=== PATIENT | female | born 1990 | race Two or more races ===

== ENCOUNTER 2020-10-03 12:36 | Outpatient (REF) | payer OTHER, SELFPAY ==
--- NOTE | 2020-10-03 12:51 | XR_ITS ---
EXAMINATION: XR LUMBOSACRAL SPINE WITH OBLIQUES CLINICAL INFORMATION: Low back pain COMPARISON: None TECHNIQUE: AP and lateral views lumbar spine. Single lateral view of the lumbosacral junction. FINDINGS: The vertebral bodies and posterior elements are normal. The disc spaces are preserved and the vertebral alignment is normal. The paraspinal soft tissues are normal. XR/XR lumbar spine 4V min IMPRESSION: Unremarkable examination.
== END 2020-10-03 12:37 | disposition home or self-care (01) ==
LOC: HO.XRAY 12:36
PROVIDERS: PCP Internal Medicine; Visit Provider Internal Medicine
DX: M54.5 Low back pain (principal)
CPT/HCPCS: 72110

== ENCOUNTER 2020-11-12 13:14 | Outpatient (REF) | payer OTHER, SELFPAY ==
--- NOTE | ~2020-11-12 | US_ITS ---
EXAMINATION: US DIAGNOSTIC ULTRASOUND BREAST, LEFT CLINICAL INFORMATION: 29-year-old with superficial dermal nodule at surface left breast areola upper outer aspect, decreased since warm compress and spontaneous drainage. Persistent breast pain. Stopped breast-feeding approximately 3 months ago. No known family history breast cancer. COMPARISON: None. TECHNIQUE: Ultrasound left breast is targeted to the area of clinical concern upper outer areolar. Retroareolar and periareolar region is also included in the [id number]. Grayscale imaging and color Doppler are performed without and with harmonics. FINDINGS: There is no cystic or solid mass. No abscess. No focal duct ectasia. No skin thickening or edema tracking in soft tissue planes. Small deep dermal nodule 2 x 3 mm near area of concern corresponds to a small vascular structure on color Doppler. There is no hyperemia. Results are discussed with the patient at time of visit. US/US breast LT limited IMPRESSION: Unremarkable left breast ultrasound. No abscess, focal duct ectasia, or edema tracking in soft tissue planes. ASSESSMENT: BI-RADS 2: Benign RECOMMENDATION: 1. Patient should be managed based on the clinical impression. 2. Otherwise, routine annual screening mammography, beginning age 40, or earlier as clinical risk factors warrant. This patient's information was entered into a reminder system with a target due date for their next mammogram.
== END 2020-11-12 13:15 | disposition home or self-care (01) ==
LOC: HO.MAMMO 13:14
PROVIDERS: PCP Internal Medicine; Visit Provider Registered Nurse Community Health
DX: N63.25 Unspecified lump in the left breast, overlapping quadrants (principal); N64.4 Mastodynia
CPT/HCPCS: 76642

== ENCOUNTER 2021-03-28 10:44 | Outpatient (REF) | payer OTHER, SELFPAY ==
--- NOTE | ~2021-03-28 | US_ITS ---
EXAMINATION: US DIAGNOSTIC ULTRASOUND BREAST, LEFT CLINICAL INFORMATION: Retroareolar palpable abnormality. COMPARISON: Mammography of same day and ultrasound of November 12, 2020. TECHNIQUE: Ultrasound of the breast is performed with real-time ross scale imaging and color Doppler. FINDINGS: Targeted left breast ultrasound to region of palpable abnormality, 2 o'clock position, retroareolar location demonstrates an epidermoid lesion which is hypoechoic and circumscribed measuring approximately 7 x 3 x 7 mm in size. Patient states that this is a different lesion than was imaged previously. There is a small amount of distal sound enhancement and no distal sound shadowing. No definite pore to the skin is appreciated. There are adjacent vessels. No definite extension of the hypoechoic mass is seen within the breast parenchyma. This may represent an epidermal inclusion cyst or possible angiokeratoma. Results are discussed with the patient at time of visit. US/US breast LT limited IMPRESSION: Palpable abnormality corresponds with epidermal lesion with vascularity which may represent a epidermal inclusion cyst/sebaceous cyst or possible angiokeratoma. ASSESSMENT: BI-RADS 2: Benign. RECOMMENDATION: Patient should be managed based on the clinical impression. Decision to proceed with surgery should be based on clinical grounds and degree of clinical concern. Otherwise screening mammography at age [age] years old.
--- NOTE | ~2021-03-28 | MM_ITS ---
EXAMINATION: MM DIAGNOSTIC DIGITAL BREAST TOMOSYNTHESIS, BILATERAL US TARGETED LEFT BREAST ULTRASOUND CLINICAL INFORMATION: Left breast lump 2 o'clock position. Tender to touch. The lifetime risk of breast cancer based on the Tyrer-Cuzick Model is 8.1%. COMPARISON: Mammography: No mammography. Ultrasound study of 11/12/2020. TECHNIQUE: Digital breast tomosynthesis is performed in both the craniocaudal and mediolateral oblique views along with computer-aided detection (CAD). Synthesized 2D images are generated from the tomosynthesis. Targeted left breast ultrasound. FINDINGS: The breasts are heterogeneously dense, which may obscure small masses (ACR BI-RADS breast composition Category c). There are no significant masses, abnormal calcifications, or other abnormalities. Targeted left breast ultrasound to region of palpable abnormality, 2 o'clock position, retroareolar location demonstrates an epidermoid lesion which is hypoechoic and circumscribed measuring approximately 7 x 3 x 7 mm in size. Patient states that this is a different lesion than was imaged previously. There is a small amount of distal sound enhancement and no distal sound shadowing. No definite pore to the skin is appreciated. There are adjacent vessels. No definite extension of the hypoechoic mass is seen within the breast parenchyma. This may represent an epidermal inclusion cyst or possible angiokeratoma. Results are discussed with the patient at time of visit. MM/MM tomosynthesis diagnostic BI IMPRESSION: Palpable abnormality corresponds with epidermal lesion with vascularity which may represent a epidermal inclusion cyst/sebaceous cyst or possible angiokeratoma. ASSESSMENT: BI-RADS 2: Benign. RECOMMENDATION: 1. Patient should be managed based on the clinical impression. Decision to proceed with surgery should be based on clinical grounds and degree of clinical concern. Routine annual screening mammography at 40 years of age.
== END 2021-03-28 10:45 | disposition home or self-care (01) ==
LOC: HO.MAMMO 10:44
PROVIDERS: Visit Provider Emergency Medicine
DX: N63.21 Unspecified lump in the left breast, upper outer quadrant (principal)
CPT/HCPCS: 76642; 77062; 77066

== ENCOUNTER → 2021-04-30 10:38 | Outpatient (BNVA) | payer MEDICAID, SELFPAY | PROVIDERS: PCP Internal Medicine; Visit Provider Surgery | DX: N60.82 Other benign mammary dysplasias of left breast (principal); N64.4 Mastodynia | CPT/HCPCS: 99202 ==

== ENCOUNTER 2021-12-11 14:48 | Outpatient (REF) | payer MEDICAID, SELFPAY ==
--- NOTE | ~2021-12-11 | US_ITS ---
EXAMINATION: US PELVIS CLINICAL INFORMATION: Excessive and frequent menses. COMPARISON: None. TECHNIQUE: Ultrasound of the pelvis is performed using both transabdominal and transvaginal transducers along with Doppler. Transvaginal imaging is performed due to inadequate visualization transabdominally. FINDINGS: Uterus: The uterus is retroverted, retroflexed and measures 8.4 cm in length, 3.8 cm and AP and 5.3 cm in transverse dimension. There is an IUD in correct position within the endometrial canal. The double wall endometrial thickness is 0.4 cm. The uterus is smooth in contour and has normal myometrial echogenicity. No visible fibroid. There is minimal fluid within the cervical canal Adnexa: Both ovaries are visualized. There is normal color flow to the adnexa. There is no ovarian torsion. There is no pelvic ascites or fluid collection. Right ovary measures 3.8 x 1.9 x 2.0 cm and volume 7.6 cm. There are small follicular cysts seen. Left ovary measures 2.6 x 1.3 x 2.0 cm and volume 3.5 mL. There are small follicular cysts seen. There is small amount of free fluid in the cul-de-sac. US/US pelvic and transvaginal IMPRESSION: Unremarkable retroverted uterus. IUD is in correct position within the endometrial canal. Minimal fluid within the cervical canal. Small ovarian follicles otherwise unremarkable ovaries. Small amount of free fluid in the cul-de-sac.
== END 2021-12-11 14:49 | disposition home or self-care (01) ==
LOC: HO.US 14:48
PROVIDERS: PCP Internal Medicine; Visit Provider Advanced Practice Midwife
DX: Z30.431 Encounter for routine checking of intrauterine contraceptive device (principal); N92.0 Excessive and frequent menstruation with regular cycle
CPT/HCPCS: 76830; 76856

== ENCOUNTER 2023-08-10 14:34 | Outpatient (REF) | payer MEDICAID, SELFPAY ==
--- NOTE | ~2023-08-10 | XR_ITS ---
EXAMINATION: XR CHEST CLINICAL INFORMATION: Productive cough Patient states, shortness of breath for 7 days, chest pain for 5 days COMPARISON: None available. TECHNIQUE: 2 views of the chest were obtained. 1441. FINDINGS: No significant abnormality is noted involving the heart, lungs, mediastinum, bony thorax or soft tissues. XR/XR chest 2V IMPRESSION: Unremarkable examination.
== END 2023-08-10 14:35 | disposition home or self-care (01) ==
LOC: HO.HHCX 14:34
PROVIDERS: Visit Provider Emergency Medicine
DX: R05.1 Acute cough (principal)
CPT/HCPCS: 71046

== ENCOUNTER 2023-10-28 13:26 | Outpatient (AMB) | payer MEDICAID, SELFPAY ==
[2023-10-28 13:28] VITALS: BP 117/82; PULSE 100; O2SAT 99; BMI 35.1
--- NOTE | 2023-10-28 13:28 | A.OFFVIS_ITS ---
Intake Vital Signs 10/28/23 13:28 Height 5 ft Weight 179 lb 10.828 oz BMI 35.1 BP 117/82 Blood Pressure Location Lt brachial Position Sitting Pulse 100 Pulse Source Doppler Pulse Oximetry (%) 99 Oxygen Delivery Method Room Air Intake Visit Reasons: Asthma Allergies doxycycline Adverse Reaction (Verified 10/28/23 13:31) Dizziness, warm sensation, nausea HPI Asthma HPI Details 32-year-old lady, nonsmoker, with underl hossein history of asthma since childhood and family history of asthma in her mother referred for management of her asthma. Patient states that she has been having difficulties controlling her since July of 2023 with multiple exacerbations requiring hospital admission, but no intubation. She denies having recent pulmonary function testing. She does complain of multiple environmental allergies. She is employed with no exposure to industrial dusts. Patient is also complaining of orthopnea lower extremity edema, and unrestful sleep with daytime somnolence and snoring. Patient states for the last few weeks she has been having cough productive of yellow sputum in the morning. [facility] Social History (Updated 10/28/23 @ 13:34 by Verito Ronquillo [facility]) Patient Tobacco Use Status: Never used Tobacco Tobacco use type: Cigarette Female Reproductive History Menstrual Age of Menarche: 12 Review of Systems Const Reports daytime sleepiness, Denies excessive sweating, Reports fatigue, Denies fever(s), Denies lethargy, Denies malaise, Denies night sweats, Reports snoring and Denies weight loss Eyes Denies blurry vision and Denies itchy eyes ENT Denies nasal congestion, Denies post nasal drip, Denies sinus pain, Denies sinus pressure and Denies other ( Thrush) Card Denies chest pain, Reports pedal edema, Denies dyspnea, Reports dyspnea on exertion, Reports orthopnea and Denies paroxysmal nocturnal dyspnea Resp Reports cough, Denies hemoptysis, Reports excessive phlegm production, Denies dyspnea, Reports dyspnea on exertion and Reports snoring GI Denies abdominal pain and Denies heartburn Musc Denies myalgias, Denies arthralgias and Denies joint swelling Skin/Breast Denies rash Neuro Denies memory loss and Denies seizure-like activity Psych Denies abnormal sleep pattern, Denies anxiety and Denies memory loss Endo Denies excessive sweating, Reports fatigue and Denies heat intolerance Logan/Lymph Denies easy bruising Aller/Immun Denies itchy eyes and Denies seasonal rhinorrhea Physical Exam Vital Signs: Last Vital Signs Pulse 100 10/28/23 13:28 BP 117/82 10/28/23 13:28 Pulse Ox 99 10/28/23 13:28 Oxygen Delivery Method Room Air 10/28/23 13:28 BMI result Body Mass Index 35.1 Const General: no acute distress and alert Nutritional Appearance: obese Orientation/consciousness: Other orientation findings ( oriented) HEENT Head: Yes atraumatic Eyes General: appearance normal, both eyes and all related structures Sclerae: sclerae normal EOM: EOMs intact bilaterally Neck Neck: Yes supple Lymphatic: no lymphadenopathy noted Resp Effort & Inspection: normal respiratory effort and no use of accessory muscles Auscultation: clear to auscultation bilaterally Cardio Rate: regular rate Rhythm: regular rhythm Heart sounds: no gallops, no murmurs and no rubs Skin General skin exam: other ( warm) Extrem General: No clubbing, No cyanosis and No edema Assessment & Plan Assessment & Plan (1) Asthma: Code(s): J45.909 - Unspecified asthma, uncomplicated Plan: At least moderate persistent. Suboptimally controlled on high-dose Advair and albuterol MDI. Will add Incruse. Will obtain full PFT. Will treat bronchitic symptoms with a course of azithromycin. (2) Environmental allergies: Code(s): Z91.09 - Other allergy status, other than to drugs and biological substances Plan: Will obtain RAST, IgE level, and CBC for further evaluation. (3) Orthopnea: Code(s): R06.01 - Orthopnea Plan: Will obtain 2D echocardiogram for further evaluation. (4) CODY (obstructive sleep apnea): Code(s): G47.33 - Obstructive sleep apnea (adult) (pediatric) Plan: Hammond Sleepiness Scale score of 15. Will obtain home sleep study. Orders: Orders Complete Blood Count Auto Diff Today Z91.09 - Other allergy status, other than to drugs and biological substances PFT pulmonary function test Today J45.909 - Unspecified asthma, uncomplicated CA echo transthoracic complete Today R06.01 - Orthopnea RT home sleep study Today G47.33 - Obstructive sleep apnea (adult) (pediatric) Resp Allergy Profile Region I Today Z91.09 - Other allergy status, other than to drugs and biological substances Medications: New umeclidinium 62.5 mcg/actuation (Incruse Ellipta) 1 inh inhalation DAILY 30 days 1 ea 6RF G47.33 - Obstructive sleep apnea (adult) (pediatric) azithromycin For 250 mg dose pack: take 500 mg today (day 1), then 250 mg for 4 days (days 2-5) PO 6 tabs 0RF G47.33 - Obstructive sleep apnea (adult) (pediatric) Coding Level of Care Code New Pt Level 5 (10529) Diagnoses Asthma J45.909 Environmental allergies Z91.09 Orthopnea R06.01 CODY (obstructive sleep apnea) G47.33
== END 2023-10-28 13:55 | disposition home or self-care (01) ==
PROVIDERS: PCP Internal Medicine; Referring Provider General Practice; Visit Provider Internal Medicine Pulmonary Disease
DX: J45.909 Unspecified asthma, uncomplicated (principal); Z91.09 Other allergy status, other than to drugs and biological substances; R06.01 Orthopnea; G47.33 Obstructive sleep apnea (adult) (pediatric)
CPT/HCPCS: 99204

== ENCOUNTER 2023-10-28 13:26 | Outpatient (REF) | payer MEDICAID, SELFPAY ==
[2023-10-28 14:07] LABS: MANUAL DIFF FLAG NO
[2023-10-28 14:37] LABS: Basophils Percent Auto 0.6 % (0-2); Eosinophils Absolute Auto 0.2 X10*3/uL (0.0-0.4); Eosinophils Percent Auto 2.1 % (0-4); Hematocrit 40.2 % (37.0-47.0); Hemoglobin 13.8 g/dl (12.0-16.0); Imm Gran Abs Auto 0.02 X10*3/uL (0.00-0.03); Imm Gran Pct Auto 0.3 % (0.0-0.4); Lymphocytes Absolute Auto 2.3 X10*3/uL (1.2-4.9); Lymphocytes Percent Auto 32.6 % (20-40); Mean Corpuscular HGB Conc 34.3 g/dl (31.0-35.0); Mean Corpuscular Hemoglobin 29.6 pg (27.0-33.0); Mean Corpuscular Volume 86.1 fL (80.0-98.0); Mean Platelet Volume 8.6 fL (9.4-12.3); Monocytes Absolute Auto 0.8 X10*3/uL (0.1-1.2); Monocytes Percent Auto 10.9 % (2-11); Neutrophils Absolute Auto 3.8 x10*3/uL (2.0-8.3); Neutrophils Percent Auto 53.5 % (45-73); Platelet Count 315 X10*3/uL (160-400); Red Blood Count 4.67 X10*6/uL (4.20-5.50); Red Cell Distribution Width 12.5 % (11.0-16.0)
[2023-10-29 23:03] LABS: Class Alternaria alternata 0; Class Aspergillus fumigatus 0; Class Bermuda Grass 2; Class Birch 2; Class Cat Dander 3; Class Cladosporium herbarum 0; Class Cockroach 0; Class Common Ragweed 2; Class Cottonwood 0/1; Class Derm. pterony 3; Class Dermatophagoides farinae 3; Class Dog Dander 3; Class Elm 0/1; Class Maple Box Elder 3; Class Mountain Cedar 0/1; Class Mouse Urine Protein 2; Class Mugwort 0; Class Oak 2; Class Penicillium crysogenum 0; Class Rough Pigweed 0; Class Sheep Sorrel 0; Class Sycamore 0; Class Timothy Grass 3; Class Walnut Tree 2; Class White Ash 0/1; Class White Mulberry 0; D001 IgE D pteronyssinus 7.49 kU/L; D002 - IgE D farinae 6.48 kU/L; E072-IgE Mouse Urine 2.23 kU/L; G002 IgE Bermuda Grass 2.87 kU/L; G006 - IgE Timothy Grass 6.51 kU/L; I006-IgE Cockroach, German <0.10 kU/L; Immunoglobulin E 337 kU/L (<OR=114); M001 IgE Penicillium chrysogen <0.10 kU/L; M002 - IgE Cladosporium herbar <0.10 kU/L; M003 - IgE Aspergillus fumigat <0.10 kU/L; M006 - IgE Alternaria alternat <0.10 kU/L; T001 IgE Maple/Box Elder 3.68 kU/L; T006 - IgE Cedar, Mountain 0.11 kU/L; T007 - IgE Oak, White 2.01 kU/L; T008 IgE Elm, American 0.25 kU/L; T010 - IgE Walnut 2.07 kU/L; T011 - IgE Maple Leaf Sycamore <0.10 kU/L; T014 - IgE Cottonwood 0.34 kU/L; T015 - IgE Ash, White 0.22 kU/L; T070 - IgE White Mulberry <0.10 kU/L; W001 - IgE Ragweed, Short 1.86 kU/L; W006 - IgE Mugwort <0.10 kU/L; W014 IgE Pigweed, Common <0.10 kU/L; W018 IgE Sheep Sorrel <0.10 kU/L
== END 2023-10-28 13:27 | disposition home or self-care (01) ==
LOC: HO.LAB 13:26
PROVIDERS: PCP Internal Medicine; Referring Provider General Practice; Visit Provider Internal Medicine Pulmonary Disease
DX: J45.909 Unspecified asthma, uncomplicated (principal); R06.01 Orthopnea; G47.33 Obstructive sleep apnea (adult) (pediatric); Z91.09 Other allergy status, other than to drugs and biological substances
CPT/HCPCS: 36415; 82785; 85025; 86003; 99202

== ENCOUNTER 2023-11-06 09:25 | Outpatient (REF) | payer MEDICAID, SELFPAY ==
[2023-11-06 10:15] VITALS: PULSE 82; RESP 16; O2SAT 98
--- NOTE | 2023-11-06 15:52 | PFT_ITS ---
Spirometry [] Lung Volumes [] Diffusion Capacity [] Methacholine Challenge [] Flow Volume Loops [] MVV [] MIP/MEP(Max inspiratory pressure/Max expiratory pressure) [] 6 Minute Walk Test [] ABG [] Interpretation [] MTDD
== END 2023-11-06 09:26 | disposition home or self-care (01) ==
LOC: HO.RESP 09:25
PROVIDERS: PCP Internal Medicine; Visit Provider Internal Medicine Pulmonary Disease
DX: J45.909 Unspecified asthma, uncomplicated (principal)
CPT/HCPCS: 94010; 94640; 94727; 94729

== ENCOUNTER → 2023-11-06 15:52 | Outpatient (BNV) | payer MEDICAID, SELFPAY | PROVIDERS: PCP Internal Medicine; Visit Provider Internal Medicine Pulmonary Disease | DX: J45.909 Unspecified asthma, uncomplicated (principal) | CPT/HCPCS: 94060; 94727; 94729 ==

== ENCOUNTER 2023-12-04 12:44 | Outpatient (REF) | payer MEDICAID, SELFPAY ==
[2023-12-04 12:50] VITALS: BP 112/70; PULSE 87; RESP 18; TEMP 36.8; O2SAT 94; BMI 34.0
[2023-12-04] MEDS: Omalizumab 150 MG/ML SYRINGE 300 MG SUBCUT (12:58)
--- NOTE | 2023-12-04 13:03 | HO.INF ---
2nd sq injection given to patient in upper left arm
--- NOTE | 2023-12-04 14:40 | HO.INF ---
2nd sq injection given in left upper arm
--- NOTE | 2023-12-04 14:41 | HO.INF ---
second dose of sq medication given in upper right arm 1330- no adverse reactions noted. 1400- no adverse reactions noted 1430 - no adverse reactions noted 1450- no adverse reactions noted
== END 2023-12-04 12:45 | disposition home or self-care (01) ==
LOC: HO.MDS 12:44
PROVIDERS: Visit Provider Internal Medicine Pulmonary Disease
DX: J45.50 Severe persistent asthma, uncomplicated (principal)
CPT/HCPCS: 96372; J2357

== ENCOUNTER → 2023-12-15 13:29 | Outpatient (REF) | payer MEDICAID, SELFPAY ==
--- NOTE | 2023-12-15 13:32 | CA_ITS ---
Transthoracic Echocardiogram Patient (Last, First, Middle): Isabel Milligan, Gender: Female Date of : 1990 Age: 33 Procedure Date: 12/15/2023 Procedure Type: Transthoracic Echocardiogram Location: OP Height: 152. cm Weight: 77.57 kg BSA: 1.74 m2 Heart Rate: 94 bpm BP: 110 / 60 mmHg Solutions Delivery Consultant: WILLIE Referring MD: Tom Hathaway MD Symptoms: R06.01 - Orthopnea Study Quality: Fair ECG Rhythm: Sinus Conclusions: - The left ventricular systolic function is normal. The calculated ejection fraction is 67% by biplane method. - No obvious valvular pathology seen on this study. - There is no evidence of pulmonary hypertension. Findings Left Ventricle Normal left ventricular cavity size. There is normal left ventricular wall thickness. The left ventricular systolic function is normal. The calculated ejection fraction is 67% by biplane method. There is no evidence of regional wall motion abnormalities. Diastolic function is normal for age. Right Ventricle Normal right ventricular cavity size and systolic function. Atria Both atria are normal in size. Aortic Valve There is a normal trileaflet aortic valve. There is no aortic valve stenosis. There is no aortic valve regurgitation. Mitral Valve The mitral valve appears normal. There is no mitral valve regurgitation. There is no mitral valve stenosis. Pulmonic Valve The pulmonic valve is likely normal. Tricuspid Valve Normal tricuspid valve structure. There is trace tricuspid valve regurgitation. There is no evidence of pulmonary hypertension. Great Vessels The asc aorta is normal in size. Venous The inferior vena cava is normal in size and collapses greater than 50% with inspiration. Pericardium/Pleural There is no evidence of pericardial effusion. Prior Study Comparison No prior study available for comparison. Recommendations, Care & Conclusions No obvious valvular pathology seen on this study. Measurements 2D Linear Measurements IVSd: 0.96 0.6-0.9/0.6-1.0 cm LVIDd: 3.52 3.9-5.3/4.2-5.9 cm LVIDd Index: 2.02 2.4-3.2/2.2-3.1 cm/m2 LVIDs: 2.13 2.0-3.6 cm LVPWd: 0.96 0.7-1.1 cm LA Diam: 2.70 2.7-3.8/3.0-4.0 cm LAIDs Index: 1.55 1.5-2.3 cm/m2 LV Mass: 121.89 67-162/88-224 g LV Mass Index: 70.05 43-95/49-115 g/m2 LVOT Diam: 1.80 3.0+(-)1.3 cm 2D Systolic Function EF 4C: 66.80 >55% EF 2C: 65.80 >55% EF BiP: 66.70 >55% Mitral Valve MV Pk E: 0.82 MV PK A: 0.72 MV Decel Time: 155.00 E/A: 1.10 E'Lateral: 9.86 E'Medial: 9.36 E/E' Med: 8.80 E/E' Lat: 8.30 PHT: 45.00 MVA PHT: 4.89 Decel Ripley: 5.32 Aortic Valve AoV Pk Roverto: 1.40 AoV Mn Roverto: 0.98 AoV VTI: 0.24 AoV Pk Grad: 8.00 Aov Mn Grad: 4.00 RAJAN Cont.VTI: 1.80 LVOT LVOT Pk Roverto: 1.04 LVOT Mn Roverto: 0.72 LVOT VTI: 0.17 LVOT Pk Grad: 4.00 LVOT Mn Grad: 2.00 LVOT Diam: 1.80 LVOT Area: 2.54 Diastolic Function MV Pk E: 0.82 MV Pk A: 0.72 E/A: 1.10 E'Medial: 9.36 E/E' Med: 8.80 E' Laterial: 9.86 E/E' Lat: 8.30 Right Ventricle TAPSE (mm): 22.80 TVS' Roverto: 12.90 Tricuspid Valve TR Pk Roverto: 1.72 TR Pk Grad: 12.00 RA Press: 3.00 RVSP: 15.00 Great Vessels Aorta Sinus of Valsalva: 2.70 2.0-3.5 cm Ao Asc: 2.70 2.1-3.4 cm Pulmonary Valve PV Pk Roverto: 1.28 Peak PV Grad: 7.00 Updated in Other Vendor System with Status of Final Yonathan Bain MD electronically signed on 12/15/2023 4:23:20 PM with status of Final
== END ==
LOC: HO.CARD 13:29
PROVIDERS: PCP Internal Medicine; Visit Provider Internal Medicine Pulmonary Disease
DX: G47.33 Obstructive sleep apnea (adult) (pediatric) (principal); R06.01 Orthopnea; R06.09 Other forms of dyspnea
CPT/HCPCS: 93306; 95806

== ENCOUNTER → 2023-12-15 13:32 | Outpatient (BNV) | payer MEDICAID, SELFPAY | PROVIDERS: PCP Internal Medicine; Visit Provider Internal Medicine | DX: R06.01 Orthopnea (principal) | CPT/HCPCS: 93306 ==

== ENCOUNTER → 2023-12-15 14:39 | Outpatient (BNV) | payer MEDICAID, SELFPAY | PROVIDERS: PCP Internal Medicine; Visit Provider Internal Medicine | DX: R06.83 Snoring (principal) | CPT/HCPCS: 95806 ==

== ENCOUNTER 2023-12-16 11:23 | Outpatient (REF) | payer MEDICAID, SELFPAY ==
[2023-12-16 13:50] LABS: Anion Gap 15 (12-20); B Type Natriuretic Peptide < 10 pg/mL (<100); Blood Urea Nitrogen 11 mg/dL (9-16); Calcium 10.1 mg/dL (8.4-10.2); Carbon Dioxide 21 mmol/L (22-29); Chloride 107 mmol/L (96-108); Estimated Glomerular Filt Rate > 60; Glucose Random 95 mg/dL (60-115); Magnesium 2.1 mg/dL (1.6-2.6); Phosphorus 1.4 mg/dL (2.7-4.5); Potassium 3.8 mmol/L (3.3-5.1); Sodium 139 mmol/L (135-145)
== END 2023-12-16 11:24 | disposition home or self-care (01) ==
LOC: HO.HHCL 11:23
PROVIDERS: Visit Provider Internal Medicine
DX: R06.09 Other forms of dyspnea (principal); G43.919 Migraine, unspecified, intractable, without status migrainosus
CPT/HCPCS: 36415; 80048; 83735; 83880; 84100

== ENCOUNTER 2023-12-18 07:58 | Outpatient (REF) | payer MEDICAID, SELFPAY ==
[2023-12-18 08:01] VITALS: BP 131/68; PULSE 82; RESP 18; TEMP 36.6; O2SAT 97
[2023-12-18] MEDS: Omalizumab 150 MG/ML SYRINGE 300 MG SUBCUT (08:09)
== END 2023-12-18 07:59 | disposition home or self-care (01) ==
LOC: HO.MDS 07:58
PROVIDERS: Visit Provider Internal Medicine Pulmonary Disease
DX: J45.50 Severe persistent asthma, uncomplicated (principal)
CPT/HCPCS: 96372; J2357

== ENCOUNTER 2023-12-18 08:26 | Outpatient (REF) | payer MEDICAID, SELFPAY ==
[2023-12-18 12:06] LABS: Phosphorus 3.5 mg/dL (2.7-4.5); Potassium 4.1 mmol/L (3.3-5.1)
== END 2023-12-18 08:27 | disposition home or self-care (01) ==
LOC: HO.HHCL 08:26
PROVIDERS: Visit Provider Internal Medicine
DX: E83.39 Other disorders of phosphorus metabolism (principal)
CPT/HCPCS: 36415; 84100; 84132

== ENCOUNTER 2023-12-22 13:52 | Outpatient (REF) | payer MEDICAID, SELFPAY ==
[2023-12-22 16:24] LABS: MANUAL DIFF FLAG NO
[2023-12-22 16:26] LABS: Basophils Percent Auto 0.2 % (0-2); Eosinophils Absolute Auto 0.2 X10*3/uL (0.0-0.4); Eosinophils Percent Auto 1.4 % (0-4); Hematocrit 40.7 % (37.0-47.0); Hemoglobin 13.8 g/dl (12.0-16.0); Imm Gran Abs Auto 0.04 X10*3/uL (0.00-0.03); Imm Gran Pct Auto 0.3 % (0.0-0.4); Lymphocytes Absolute Auto 1.2 X10*3/uL (1.2-4.9); Lymphocytes Percent Auto 9.7 % (20-40); Mean Corpuscular HGB Conc 33.9 g/dl (31.0-35.0); Mean Corpuscular Hemoglobin 29.7 pg (27.0-33.0); Mean Corpuscular Volume 87.5 fL (80.0-98.0); Mean Platelet Volume 8.6 fL (9.4-12.3); Monocytes Percent Auto 8.2 % (2-11); Neutrophils Absolute Auto 9.6 x10*3/uL (2.0-8.3); Neutrophils Percent Auto 80.2 % (45-73); Platelet Count 295 X10*3/uL (160-400); Red Blood Count 4.65 X10*6/uL (4.20-5.50); Red Cell Distribution Width 13.1 % (11.0-16.0)
[2023-12-22 16:39] LABS: Estimated Average Glucose 108 mg/dL; Hemoglobin A1c % 5.4 % (<6.0)
[2023-12-22 17:04] LABS: Alanine Aminotransferase 30 U/L (0-31); Albumin Level 3.6 g/dL (3.5-5.0); Alkaline Phosphatase 87 U/L (39-117); Anion Gap 12 (12-20); Aspartate Amino Transferase 26 U/L (5-31); Bilirubin Total 0.5 mg/dL (0.0-1.0); Blood Urea Nitrogen 10 mg/dL (9-16); Calcium 8.9 mg/dL (8.4-10.2); Carbon Dioxide 22 mmol/L (22-29); Chloride 107 mmol/L (96-108); Estimated Glomerular Filt Rate > 60; Glucose Random 88 mg/dL (60-115); Magnesium 2.2 mg/dL (1.6-2.6); Phosphorus 2.8 mg/dL (2.7-4.5); Sodium 137 mmol/L (135-145); Total Protein 6.8 g/dL (6.5-8.0)
[2023-12-22 17:20] LABS: TSH reflex Free T4 1.09 uIU/mL (0.32-4.0)
== END 2023-12-22 13:53 | disposition home or self-care (01) ==
LOC: HO.HHCL 13:52
PROVIDERS: Visit Provider Internal Medicine
DX: R55 Syncope and collapse (principal)
CPT/HCPCS: 36415; 80053; 83036; 83735; 84100; 84443; 85025

== ENCOUNTER 2023-12-23 13:42 | Outpatient (AMB) | payer MEDICAID, SELFPAY ==
--- NOTE | 2023-12-23 13:43 | MHC.OFFVIS ---
Intake Vital Signs 12/23/23 13:45 Height 5 ft Weight 172 lb BMI 33.6 BP 98/62 Blood Pressure Location Rt brachial Pulse 90 Pulse Source Doppler Pulse Oximetry (%) 98 Oxygen Delivery Method Room Air Intake Visit Reasons: asthma: test results Allergies doxycycline Adverse Reaction (Verified 12/23/23 13:53) Dizziness, warm sensation, nausea HPI asthma: test results HPI Details 32-year-old lady, nonsmoker, followed for underlying environmental allergies and asthma. Patient continues on Advair, Incruse, albuterol MDI. After the last office visit she also been started on Xolair. Patient states that she has had a recent exacerbation treated at [facility] room with prednisone taper. She appears to be at baseline at this time. [facility] Social History Patient Tobacco Use Status: Never used Tobacco Tobacco use type: Cigarette Female Reproductive History Menstrual Age of Menarche: 12 Review of Systems Const Denies daytime sleepiness, Denies excessive sweating, Reports fatigue, Denies fever(s), Reports lethargy, Denies malaise, Denies night sweats, Denies snoring and Denies weight loss Eyes Denies blurry vision and Denies itchy eyes ENT Denies nasal congestion, Denies post nasal drip, Denies sinus pain, Denies sinus pressure and Denies other ( Thrush) Card Denies chest pain, Denies pedal edema, Denies dyspnea, Denies orthopnea and Denies paroxysmal nocturnal dyspnea Resp Denies cough, Denies hemoptysis, Denies excessive phlegm production, Denies dyspnea, Denies snoring and Denies wheezing GI Denies abdominal pain and Denies heartburn Musc Denies myalgias, Denies arthralgias and Denies joint swelling Skin/Breast Denies rash Neuro Denies memory loss and Denies seizure-like activity Psych Denies abnormal sleep pattern, Reports anxiety and Denies memory loss Endo Denies excessive sweating, Reports fatigue and Denies heat intolerance Logan/Lymph Denies easy bruising Aller/Immun Denies itchy eyes, Denies seasonal rhinorrhea and Denies wheezing Physical Exam Vital Signs: Last Vital Signs Pulse 90 12/23/23 13:45 BP 98/62 12/23/23 13:45 Pulse Ox 98 03/27/24 13:45 Oxygen Delivery Method Room Air 03/27/24 13:45 BMI result Body Mass Index 33.6 Const General: no acute distress and alert Nutritional Appearance: not obese Orientation/consciousness: Other orientation findings ( oriented) HEENT Head: Yes atraumatic Eyes General: appearance normal, both eyes and all related structures Sclerae: sclerae normal EOM: EOMs intact bilaterally Neck Neck: Yes supple Lymphatic: no lymphadenopathy noted Resp Effort & Inspection: normal respiratory effort and no use of accessory muscles Auscultation: clear to auscultation bilaterally Cardio Rate: regular rate Rhythm: regular rhythm Heart sounds: no gallops, no murmurs and no rubs Skin General skin exam: other ( warm) Extrem General: No clubbing, No cyanosis and No edema Assessment & Plan Assessment & Plan (1) Asthma: Code(s): J45.909 - Unspecified asthma, uncomplicated Plan: Improving control on Xolair. Continue Advair, Incruse, Xolair, and albuterol MDI. (2) Environmental allergies: Code(s): Z91.09 - Other allergy status, other than to drugs and biological substances Plan: Improving control on Xolair. Continue Xolair and montelukast. Coding Level of Care Code Est Pt Level 4 (61746) Diagnoses Asthma J45.909 Environmental allergies Z91.09
[2023-12-23 13:45] VITALS: BP 98/62; PULSE 90; O2SAT 98; BMI 33.6
== END 2023-12-23 14:02 | disposition home or self-care (01) ==
PROVIDERS: PCP Internal Medicine; Referring Provider Internal Medicine; Visit Provider Internal Medicine Pulmonary Disease
DX: J45.909 Unspecified asthma, uncomplicated (principal); Z91.09 Other allergy status, other than to drugs and biological substances
CPT/HCPCS: 99214

== ENCOUNTER → 2023-12-23 13:42 | Outpatient (BNVA) | payer MEDICAID, SELFPAY | PROVIDERS: PCP Internal Medicine; Visit Provider Internal Medicine Pulmonary Disease | DX: J45.909 Unspecified asthma, uncomplicated (principal); Z91.09 Other allergy status, other than to drugs and biological substances; Z79.899 Other long term (current) drug therapy | CPT/HCPCS: 99212 ==

== ENCOUNTER 2023-12-25 18:48 | Emergency (ER) | payer MEDICAID, SELFPAY ==
--- NOTE | 2023-12-25 19:53 | ED.GENADULT ---
HPI - General Adult General Chief complaint: Headache Stated complaint: Migraine, very dizzy Time Seen by Provider: 12/25/23 21:18 Source: patient Mode of arrival: ambulatory Limitations: no limitations History of Present Illness HPI narrative: Patient's history of migraine headaches been under stress lately for last few weeks complaining of vertiginous feeling also was seen at [facility] [address] scan of the head was negative lab was normal, still having the headache Related Data Home Medications Medication Instructions Recorded Confirmed albuterol sulfate 90 mcg/actuation inhalation 04/30/21 aerosol inhaler amitriptyline 10 mg tablet 10 mg PO BEDTIME 04/30/21 baclofen 10 mg tablet 10 mg PO DAILY PRN 04/30/21 gfoeeczijs-efkgofkerussc-ngsblkvv 1 - 2 tab PO Q4H PRN 04/30/21 50 mg-325 mg-40 mg tablet cyclobenzaprine 5 mg tablet 5 mg PO TID 04/30/21 gabapentin 100 mg capsule 100 mg PO BID 04/30/21 lidocaine 5 % topical patch 1 patch topical DAILY 04/30/21 montelukast 10 mg tablet 10 mg PO QPM 04/30/21 nabumetone 750 mg tablet 750 mg PO BID 04/30/21 albuterol sulfate 2.5 mg/3 mL mg inhalation 10/28/23 (0.083 %) solution for nebulization fluticasone propionate 230 2 puff inhalation 10/28/23 mcg-salmeterol 21 mcg/actuation HFA inhaler (Advair HFA) magnesium oxide 400 mg (241.3 mg 400 mg PO DAILY 10/28/23 magnesium) tablet ondansetron HCl 4 mg tablet 4 mg PO Q12H PRN nausea/vomiting 10/28/23 sumatriptan succinate 100 mg tablet mg PO 10/28/23 Previous Rx's Medication Instructions Recorded azithromycin 250 mg tablet See Rx Instructions PO .COMPLEX #6 10/28/23 tabs umeclidinium 62.5 mcg/actuation 1 inh inhalation DAILY 30 days #1 10/28/23 blister powder for inhalation ea (Incruse Ellipta) omalizumab 150 mg subcutaneous 300 mg subcut Q2W 28 days #1 ea 11/19/23 solution (Xolair) Allergies Allergy/AdvReac Type Severity Reaction Status Date / Time seafood Allergy Intermediate Shortness Verified 12/25/23 19:53 of Breath doxycycline AdvReac Intermediate Dizziness, Verified 12/25/23 19:53 warm sensation, nausea Review of Systems Review of Systems: Yes all other systems are reviewed and are negative [facility] Social History Social History Patient Tobacco Use Status: Never used Tobacco Tobacco use type: Cigarette Smoked in Last 30 Days: No Use of substances other than those prescribed or required for medical reasons: No Advance Directives: No Advance Directives Information Provided: No Patient : No Physical Exam ED Vital Signs: Vital Signs - 24 hr 12/25/23 19:54 12/25/23 21:16 Temperature 97.9 F 98.0 F Pulse Rate 117 H 95 Respiratory Rate 18 16 Blood Pressure 123/75 123/82 Pulse Oximetry 99 99 Oxygen Delivery Method Room Air Room Air BMI result Body Mass Index 33.6 Appearance: Alert. Oriented X3. Light sensitivity in moderate distress Eyes: PERRLA, No Nystagmus ENT: Pharynx normal. Oral Mucosa moist temporal artery nontender Neck: Normal inspection. Neck supple. CVS: Normal heart rate and rhythm. Pulses normal. Respiratory: No respiratory distress. Equal air entry bilateral, no wheezing/rales/rhonchi Abdomen: Soft and nontender. Bowel sounds are present, no mass palpable, no CVA tenderness Skin: Skin warm and dry. Normal skin color. Normal skin turgor. Extremities: No lower extremity edema. No calf tenderness Neuro: Oriented X 3. No motor deficit. No sensory deficit.No cerebellar signs , cranial nerves II-XII intact Course Course Course Narrative: This is an RME: Additional HPI, ROS, PE not included below will be deferred to primary provider. Patient is a 33-year-old female seen at [facility] on 12/21/23 after syncope she had a head CT that she states was normnal, has continued to have headaches, dizziness, nausea, weakness, dizziness room spinning sensation. Meclizine, reglan and fioricet may alleviate her symptoms for approximately 1-1.5 hours and then her symptoms return. Was advised by her primary care doctor to come back to emergency department. Reports only change is that dizziness is at rest as well. Currently migraine headache is diffuse 10/10, requesting pain management. Medications Administered Discontinued Medications Generic Name Dose Route Start Last Admin Trade Name Hamida PRN Reason Stop Dose Admin Diphenhydramine HCl 50 mg 12/25/23 22:27 12/25/23 22:53 Diphenhydramine Hcl 50 Mg/Ml Vial IVPUSH 12/25/23 22:28 50 mg ONCE ONE Administration Sodium Chloride 1,000 mls @ 999 mls/hr 12/25/23 22:27 12/25/23 22:52 Ns IV 12/25/23 23:27 999 mls/hr .Q1H1M ONE Administration Ketorolac Tromethamine 30 mg 12/25/23 22:27 12/25/23 22:52 Ketorolac Tromethamine 30 Mg/Ml Vial IVPUSH 12/25/23 22:28 30 mg ONCE ONE Administration Lorazepam 1 mg 12/25/23 22:27 12/25/23 22:53 Lorazepam 2 Mg/Ml Vial IVPUSH 12/25/23 22:28 1 mg ONCE ONE Administration Metoclopramide HCl 10 mg 12/25/23 22:27 12/25/23 22:52 Metoclopramide Hcl 10 Mg/2 Ml Vial IVPUSH 12/25/23 22:28 10 mg ONCE ONE Administration Medical Decision Making Medical Decision Making [facility] Narrative: Patient clinically with benign positional vertigo along with complex migraine patient already taking meclizine. Will advised to continue same medication. Patient received Benadryl lorazepam and Reglan in the ER along with Toradol the patient felt much better ,headache is almost gone will discharge patient home Differential Diagnosis Differential Diagnoses: The differential diagnosis associated with the presentation includes Migraine headache/tension headache/sinus headache Lab Data [facility] Lab Attestation statement: I reviewed the patient's lab results. 12/25/23 20:23 12/25/23 20:23 Labs: Lab Results 12/25/23 Range/Units 20:23 WBC 7.8 (4.8-10.8) X10*3/uL RBC 4.54 (4.20-5.50) X10*6/uL Hgb 13.4 (12.0-16.0) g/dl Hct 39.1 (37.0-47.0) % MCV 86.1 (80.0-98.0) fL MCH 29.5 (27.0-33.0) pg MCHC 34.3 (31.0-35.0) g/dl RDW 12.6 (11.0-16.0) % Plt Count 258 (160-400) X10*3/uL MPV 8.2 L (9.4-12.3) fL Immature Gran % (Auto) 0.3 (0.0-0.4) % Neut % (Auto) 64.6 (45-73) % Lymph % (Auto) 23.2 (20-40) % Morton % (Auto) 9.4 (2-11) % Eos % (Auto) 2.1 (0-4) % Baso % (Auto) 0.4 (0-2) % Lymph # (Auto) 1.8 (1.2-4.9) X10*3/uL Morton # (Auto) 0.7 (0.1-1.2) X10*3/uL Eos # (Auto) 0.2 (0.0-0.4) X10*3/uL Baso # (Auto) 0.0 (0.0-0.2) X10*3/uL Abs Immat Gran (auto) 0.02 (0.00-0.03) X10*3/uL Absolute Neuts (auto) 5.0 (2.0-8.3) x10*3/uL Absolute Nucleated RBC 0.000 (0.0-0.012) X10*3/uL Nucleated RBC % (auto) 0.0 (0.0-0.2) /100WBC Sodium 138 (135-145) mmol/L Potassium 3.8 (3.3-5.1) mmol/L Chloride 108 (96-108) mmol/L Carbon Dioxide 23 (22-29) mmol/L Anion Gap 11 L (12-20) BUN 7 L (9-16) mg/dL Creatinine 1.08 (0.5-1.4) mg/dL Estim Creat Clear Calc 68.4 Estimated GFR 58 Random Glucose 106 (60-115) mg/dL Calcium 8.9 (8.4-10.2) mg/dL Total Bilirubin 0.2 (0.0-1.0) mg/dL AST 30 (5-31) U/L ALT 44 H (0-31) U/L Alkaline Phosphatase 90 (39-117) U/L Total Protein 6.9 (6.5-8.0) g/dL Albumin 3.6 (3.5-5.0) g/dL Beta HCG, Quant < 2 mIU/mL Influenza Type A (PCR) NEGATIVE (Negative) Influenza Type B (PCR) NEGATIVE (Negative) RSV RNA Qual (PCR) NEGATIVE (Negative) SARS-CoV-2 RNA (RT-PCR) NEGATIVE (Negative) Discharge Plan Discharge Clinical Impression: Migraine, Benign paroxysmal positional vertigo Patient Disposition: Home, Self-Care Instructions: Migraine Headache (ED), Benign Paroxysmal Positional Vertigo (ED) Additional Instructions: Continue medication for headache as prescribed Continue taking meclizine 1 tablet every 8 hours as needed for dizziness Drink plenty of fluids and follow with PCP Prescriptions: No Action Xolair 150 mg recon soln 300 mg subcut Q2W 28 Days Qty: 1 12RF Rx Instructions: requires multiple injection sites; do not exceed 150 mg per injection site gabapentin 100 mg capsule 100 mg PO BID montelukast 10 mg tablet 10 mg PO QPM baclofen 10 mg tablet 10 mg PO DAILY PRN amitriptyline 10 mg tablet 10 mg PO BEDTIME awxvkamsly-fddmvyyvgoxuj-dkax 50-325-40 mg tablet 1 - 2 tab PO Q4H PRN nabumetone 750 mg tablet 750 mg PO BID cyclobenzaprine 5 mg tablet 5 mg PO TID albuterol sulfate 90 mcg/actuation HFA aerosol inhaler inhalation lidocaine 5 % adhesive patch,medicated 1 patch topical DAILY sumatriptan succinate 100 mg tablet PO magnesium oxide 400 mg (241.3 mg magnesium) tablet 400 mg PO DAILY fluticasone propion-salmeterol [Advair HFA] 230-21 mcg/actuation HFA aerosol inhaler 2 puff inhalation ondansetron HCl 4 mg tablet 4 mg PO Q12H PRN (Reason: nausea/vomiting) albuterol sulfate 2.5 mg /3 mL (0.083 %) solution for nebulization inhalation Incruse Ellipta 62.5 mcg/actuation blister with device 1 inh inhalation DAILY 30 Days Qty: 1 6RF azithromycin 250 mg tablet See Rx Instructions PO .COMPLEX Qty: 6 0RF Rx Instructions: For 250 mg dose pack: take 500 mg today (day 1), then 250 mg for 4 days (days 2-5) PO
[2023-12-25 19:54] VITALS: BP 123/75; PULSE 117; RESP 18; TEMP 36.6; O2SAT 99; BMI 33.6
[2023-12-25 20:32] LABS: MANUAL DIFF FLAG NO
[2023-12-25 20:34] LABS: Basophils Percent Auto 0.4 % (0-2); Eosinophils Absolute Auto 0.2 X10*3/uL (0.0-0.4); Eosinophils Percent Auto 2.1 % (0-4); Hematocrit 39.1 % (37.0-47.0); Hemoglobin 13.4 g/dl (12.0-16.0); Imm Gran Abs Auto 0.02 X10*3/uL (0.00-0.03); Imm Gran Pct Auto 0.3 % (0.0-0.4); Lymphocytes Absolute Auto 1.8 X10*3/uL (1.2-4.9); Lymphocytes Percent Auto 23.2 % (20-40); Mean Corpuscular HGB Conc 34.3 g/dl (31.0-35.0); Mean Corpuscular Hemoglobin 29.5 pg (27.0-33.0); Mean Corpuscular Volume 86.1 fL (80.0-98.0); Mean Platelet Volume 8.2 fL (9.4-12.3); Monocytes Absolute Auto 0.7 X10*3/uL (0.1-1.2); Monocytes Percent Auto 9.4 % (2-11); Neutrophils Percent Auto 64.6 % (45-73); Platelet Count 258 X10*3/uL (160-400); Red Blood Count 4.54 X10*6/uL (4.20-5.50); Red Cell Distribution Width 12.6 % (11.0-16.0); White Blood Count 7.8 X10*3/uL (4.8-10.8)
[2023-12-25 20:56] LABS: Alanine Aminotransferase 44 U/L (0-31); Albumin Level 3.6 g/dL (3.5-5.0); Alkaline Phosphatase 90 U/L (39-117); Anion Gap 11 (12-20); Aspartate Amino Transferase 30 U/L (5-31); Bilirubin Total 0.2 mg/dL (0.0-1.0); Blood Urea Nitrogen 7 mg/dL (9-16); Calcium 8.9 mg/dL (8.4-10.2); Carbon Dioxide 23 mmol/L (22-29); Chloride 108 mmol/L (96-108); Creatinine Clr Calc Pharmacy 68.4; Estimated Glomerular Filt Rate 58; Glucose Random 106 mg/dL (60-115); HCG Quantitative < 2 mIU/mL; Potassium 3.8 mmol/L (3.3-5.1); Sodium 138 mmol/L (135-145); Total Protein 6.9 g/dL (6.5-8.0)
[2023-12-25 21:10] LABS: Influenza A PCR NEGATIVE (Negative); Influenza B PCR NEGATIVE (Negative); Resp Syncy Virus RNA Qual PCR NEGATIVE (Negative); SARS COV2 PCR INHOUSE NEGATIVE (Negative)
[2023-12-25 21:16] VITALS: BP 123/82; PULSE 95; RESP 16; TEMP 36.7; O2SAT 99
--- NOTE | 2023-12-25 21:23 | PC.NURSE ---
Pt aox4 resting at the bedside. Reports headache, 10/10, nausea, dizziness, weakness, and tiredness. Reports headache is allover tightness. Wearing sunglasses at light increases the pain. Reports noise is double intensity. Recently seen at [facility] and PCP's office for this situation. Reports head Ct done at [facility] with normal findings. Given Fioricet, Meclizine, and Reglan with minimal effect. Hx of migraine, takes Sumatriptain PRN and Amitriptiline at night. Referred to ENT, appt in May. [facility] records requested. Pending physician eval.
[2023-12-25] MEDS: Metoclopramide HCl 10 MG/2 ML VIAL IVPUSH (22:52)
[2023-12-25] MEDS: Ketorolac Tromethamine 30 MG/ML VIAL IVPUSH (22:52)
[2023-12-25] MEDS: 0.9 % Sodium Chloride 1,000 ML 999 ML IV (22:52)
[2023-12-25] MEDS: diphenhydrAMINE HCL 50 MG/ML VIAL IVPUSH (22:53)
[2023-12-25] MEDS: LORazepam 2 MG/ML VIAL 1 MG IVPUSH (22:53)
[2023-12-26 02:06] VITALS: BP 99/60; PULSE 88; RESP 14; TEMP 37; O2SAT 96
== END 2023-12-26 02:08 | disposition home or self-care (01) ==
PROVIDERS: Nurse Practitioner Family; Emergency Provider Internal Medicine; PCP Internal Medicine
DX: G43.909 Migraine, unspecified, not intractable, without status migrainosus (principal); H81.13 Benign paroxysmal vertigo, bilateral; R11.2 Nausea with vomiting, unspecified; Z11.52 Encounter for screening for COVID-19; Z20.822 Contact with and (suspected) exposure to COVID-19; Z79.899 Other long term (current) drug therapy
CPT/HCPCS: 0241U; 36415; 80053; 84702; 85025; 96361; 96374; 96375; 99284; 99285; J1200; J1885; J2060; J2765

== ENCOUNTER → 2023-12-31 09:47 | Outpatient (REF) | payer MEDICAID, SELFPAY ==
--- NOTE | ~2023-12-31 | XR_ITS ---
EXAMINATION: XR CHEST CLINICAL INFORMATION: Progressive shortness of breath COMPARISON: Chest x-ray on 08/10/2023 TECHNIQUE: 2 views of the chest were obtained. FINDINGS: vascularity. LUNGS: Lungs are clear. No pneumothorax is seen. BONES: Bony skeleton is intact. XR/XR chest 2V IMPRESSION: Unchanged Normal chest x-ray.
--- NOTE | ~2023-12-31 | NM_ITS ---
EXAMINATION: PULMONARY PERFUSION STUDY CLINICAL INFORMATION: Dyspnea on exertion for 5 months, rule out PE. COMPARISON: No previous lung scan is available for comparison. Radiographs of the chest dated 12/31/2023, the same day as this lung scan, are available for comparison. TECHNIQUE: Following the intravenous injection of 4.0 mCi Tc-99m MAA, the lungs were imaged in the anterior and posterior, left and right lateral and AMY, QUINTANA, LPO, and RPO projections using a gamma scintillation camera. FINDINGS: No segmental perfusion defects are present. There is homogeneous distribution of activity bilaterally. There are no focal anatomic appearing perfusion defects present. NM/NM pul perfusion IMPRESSION: Normal radionuclide lung perfusion scan.
== END ==
LOC: HO.NUCMED 09:47
PROVIDERS: PCP Internal Medicine; Visit Provider Internal Medicine
DX: R06.09 Other forms of dyspnea (principal); J45.40 Moderate persistent asthma, uncomplicated
CPT/HCPCS: 71046; 78580; A9540

== ENCOUNTER 2024-01-22 10:15 | Outpatient (AMB) | payer MEDICAID, SELFPAY ==
--- NOTE | 2024-01-22 10:24 | MHC.OFFVIS ---
Vital Signs 01/22/24 10:25 Height 5 ft Weight 178 lb BMI 34.8 BP 110/77 Blood Pressure Location Lt brachial Position Sitting Pulse 80 Pulse Source Doppler Pulse Oximetry (%) 98 Oxygen Delivery Method Room Air Intake Visit Reasons: Asthma Allergies seafood Allergy (Intermediate, Verified 01/22/24 10:29) Shortness of Breath doxycycline Adverse Reaction (Intermediate, Verified 01/22/24 10:29) Dizziness, warm sensation, nausea HPI HPI Asthma: Details: 33-year-old lady, nonsmoker, followed for underlying environmental allergies and asthma. Patient continues on Xolair, Advair, Incruse, albuterol MDI with good control of her underlying symptoms. She denies recent exacerbation. [facility] Social History Patient Tobacco Use Status: Never used Tobacco Tobacco use type: Cigarette Female Reproductive History Menstrual Age of Menarche: 12 Review of Systems Const Denies daytime sleepiness, Denies excessive sweating, Denies fatigue, Denies fever(s), Denies lethargy, Denies malaise, Denies night sweats, Denies snoring and Denies weight loss Eyes Denies blurry vision and Denies itchy eyes ENT Denies nasal congestion, Denies post nasal drip, Denies sinus pain, Denies sinus pressure and Denies other ( Thrush) Card Denies chest pain, Denies pedal edema, Denies dyspnea, Denies orthopnea and Denies paroxysmal nocturnal dyspnea Resp Denies cough, Denies hemoptysis, Denies excessive phlegm production, Denies dyspnea, Denies snoring and Denies wheezing GI Denies abdominal pain and Denies heartburn Musc Denies myalgias, Denies arthralgias and Denies joint swelling Skin/Breast Denies rash Neuro Denies memory loss and Denies seizure-like activity Psych Denies abnormal sleep pattern, Denies anxiety and Denies memory loss Endo Denies excessive sweating, Denies fatigue and Denies heat intolerance Logan/Lymph Denies easy bruising Aller/Immun Denies itchy eyes, Denies seasonal rhinorrhea and Denies wheezing Physical Exam Vital Signs: Last Vital Signs Pulse 80 01/22/24 10:25 BP 110/77 01/22/24 10:25 Pulse Ox 98 01/22/24 10:25 Oxygen Delivery Method Room Air 01/22/24 10:25 BMI result Body Mass Index 34.8 Const General: no acute distress and alert Nutritional Appearance: not obese Orientation/consciousness: Other orientation findings ( oriented) HEENT Head: Yes atraumatic Eyes General: appearance normal, both eyes and all related structures Sclerae: sclerae normal EOM: EOMs intact bilaterally Neck Neck: Yes supple Lymphatic: no lymphadenopathy noted Resp Effort & Inspection: normal respiratory effort and no use of accessory muscles Auscultation: clear to auscultation bilaterally Cardio Rate: regular rate Rhythm: regular rhythm Heart sounds: no gallops, no murmurs and no rubs Skin General skin exam: other ( warm) Extrem General: No clubbing, No cyanosis and No edema Assessment & Plan Assessment & Plan (1) Asthma: Code(s): J45.909 - Unspecified asthma, uncomplicated Category: Medical Plan: Well controlled on Xolair, Advair, Incruse, and albuterol MDI. Continue current regimen. (2) Environmental allergies: Code(s): Z91.09 - Other allergy status, other than to drugs and biological substances Category: Medical Plan: Well controlled on Xolair and Singulair. Continue current regimen. Coding Level of Care Code Est Pt Level 4 (58254) Diagnoses Asthma J45.909 Environmental allergies Z91.09
[2024-01-22 10:25] VITALS: BP 110/77; PULSE 80; O2SAT 98; BMI 34.8
== END 2024-01-22 10:35 | disposition home or self-care (01) ==
PROVIDERS: PCP Internal Medicine; Visit Provider Internal Medicine Pulmonary Disease
DX: J45.909 Unspecified asthma, uncomplicated (principal); Z91.09 Other allergy status, other than to drugs and biological substances
CPT/HCPCS: 99214

== ENCOUNTER → 2024-01-22 10:15 | Outpatient (BNVA) | payer MEDICAID, SELFPAY | PROVIDERS: PCP Internal Medicine; Visit Provider Internal Medicine Pulmonary Disease | DX: J45.909 Unspecified asthma, uncomplicated (principal); Z91.09 Other allergy status, other than to drugs and biological substances; Z79.899 Other long term (current) drug therapy | CPT/HCPCS: 99212 ==

== ENCOUNTER 2024-01-27 08:37 | Emergency (ER) | payer MEDICAID, SELFPAY ==
[2024-01-27 09:12] VITALS: BP 109/66; PULSE 86; RESP 16; TEMP 37.1; O2SAT 98; BMI 35.3
--- NOTE | 2024-01-27 13:05 | ED_ITS ---
HPI - Headache General Chief Complaint: Headache Stated Complaint: Migraine, vomiting - sent by neurologist Time Seen by Provider: 01/27/24 12:58 Source: patient Mode of arrival: ambulatory Limitations: no limitations History of Present Illness HPI Narrative: 33-year-old female with history of migraine diagnosed by a neurologist 5-6 years ago. presented with 3 days of headache that patient described it as her ty pical migraine with photophobia, nausea, and vomiting. No fever, no neck stiffness. Headache is worsening with noise and light. Patient was taken propanolol for managing her migraine but was discontinued because patient's usually runs low blood pressure and get syncopal episodes, patient also is awaiting for insurance authorization for new migraine medication recommended by her neurologist. No head trauma, no family history of young or known intracranial bleed or cerebral aneurysm. Declined chance of being has IUD. Related Data Home Medications ?Medication ?Instructions ?Recorded ?Confirmed albuterol sulfate 90 mcg/actuation inhalation 04/30/21 aerosol inhaler amitriptyline 10 mg tablet 10 mg PO BEDTIME 04/30/21 baclofen 10 mg tablet 10 mg PO DAILY PRN 04/30/21 wwhspyjknf-ynvrhkauncrdm-vurikemp 1 - 2 tab PO Q4H PRN 04/30/21 50 mg-325 mg-40 mg tablet cyclobenzaprine 5 mg tablet 5 mg PO TID 04/30/21 gabapentin 100 mg capsule 100 mg PO BID 04/30/21 lidocaine 5 % topical patch 1 patch topical DAILY 04/30/21 montelukast 10 mg tablet 10 mg PO QPM 04/30/21 nabumetone 750 mg tablet 750 mg PO BID 04/30/21 albuterol sulfate 2.5 mg/3 mL mg inhalation 10/28/23 (0.083 %) solution for nebulization fluticasone propionate 230 2 puff inhalation 10/28/23 mcg-salmeterol 21 mcg/actuation HFA inhaler (Advair HFA) magnesium oxide 400 mg (241.3 mg 400 mg PO DAILY 10/28/23 magnesium) tablet ondansetron HCl 4 mg tablet 4 mg PO Q12H PRN nausea/vomiting 10/28/23 sumatriptan succinate 100 mg tablet mg PO 10/28/23 Previous Rx's ?Medication ?Instructions ?Recorded azithromycin 250 mg tablet See Rx Instructions PO .COMPLEX #6 10/28/23 tabs umeclidinium 62.5 mcg/actuation 1 inh inhalation DAILY 30 days #1 10/28/23 blister powder for inhalation ea (Incruse Ellipta) omalizumab 150 mg subcutaneous 300 mg subcut Q2W 28 days #1 ea 11/19/23 solution (Xolair) Allergies Allergy/AdvReac Type Severity Reaction Status Date / Time seafood Allergy Intermediate Shortness Verified 01/27/24 09:13 of Breath doxycycline AdvReac Intermediate Dizziness, Verified 01/27/24 09:13 warm sensation, nausea Review of Systems Review of Systems: All other systems are reviewed and are negative Constitutional: Reports as per HPI and Reports no additional constitutional complaints Eyes: Reports as per HPI and Reports no additional eye complaints Reports system reviewed and no additional complaints, except as documented Cardiovascular: Reports as per HPI and Reports no additional cardiovascular complaints Respiratory: Reports as per HPI and Reports no additional respiratory complaints Gastrointestinal: Reports as per HPI and Reports no additional gastrointestinal complaints Genitourinary: Reports no additional female genitourinary complaints Musculoskeletal: Reports no additional musculoskeletal complaints Skin/Breast: Reports system reviewed and no additional complaints, except as docu Psychiatric: Reports no additional psychiatric complaints Endocrine: Reports no additional endocrine complaints Hematologic/Lymphatic: Reports no additional hematologic/lymphatic complaints Allergic/Immunologic: Reports no additional allergic/immunologic complaints Reports system reviewed and no additional complaints, except as documented and Reports Abnormal speech present [facility] Social History Social History Patient Tobacco Use Status: Never used Tobacco Tobacco use type: Cigarette Advance Directives: No Advance Directives Information Provided: No Do you have a plan to hurt others: No Plan Physical Exam Vital Signs: Vital Signs: Last Vital Signs Temp 98.2 F 01/27/24 13:51 Pulse 88 01/27/24 13:51 Resp 19 01/27/24 13:51 BP 112/69 01/27/24 13:51 Pulse Ox 98 01/27/24 09:12 O2 Del Method Room Air 01/27/24 13:51 O2 Flow Rate 100 01/27/24 13:51 BMI result Body Mass Index 35.3 Vital signs have been reviewed and appear to be correct. Blood pressure elevated. Heart rate normal. Respiratory rate normal. Temperature normal. Oxygen saturation normal. Appearance: Alert. Oriented X3. No acute distress. Head: Normal external exam. Normocephalic. Atraumatic. No Rodgers signs noted. No raccoon eyes noted Eyes: PERRLA. EOMI. Conjunctiva and sclera normal. Eyelids normal. ENT: TM's Normal. Pharynx normal. Uvula midline. Moist mucous membranes. No trismus noted. No drooling noted. No muffled voice noted. Neck: Normal inspection. Neck supple. FROM. No adenopathy. Thyroid Normal. No meningeal signs. No neck mass noted. CVS: Normal heart rate and rhythm. Heart sound normal. No murmurs noted. Pulses normal throughout. Respiratory: No respiratory distress. Painless inspiration. Breath sounds normal. No wheezes/rales/rhonchi noted. Chest nontender. No accessory muscle usage noted or decreased air movement noted. Abdomen: Soft and nontender. Bowel sounds normal in all 4 quadrants. No distention noted. No organomegaly noted. No visible injury noted. Back: No CVA tenderness. Full range of motion noted. Skin: Skin warm and dry. Normal skin color. Normal skin turgor. No rashes/lesions/lacerations noted. Extremities: No lower extremity edema. Extremities exhibit normal range of motion. Extremities nontender. Neuro: Oriented X 3. Cranial nerve exam: II-XII are grossly intact No motor deficit. No sensory deficit. Reflexes normal. Course Reevaluation(s) Reevaluation #1: 33-year-old female history of migraine had a previous extensive workup by her neurologist with several different therapeutic regimens for migraine without good control of her symptoms, patient is waiting for pre insurance authorization for another treatment by her neurologist. Presented today for evaluation of her typical symptoms with headache, nausea, vomiting and photophobia, patient received IV hydration with 1 dose of Solu-Medrol which might help some of the migraine symptoms with Reglan and Benadryl patient now feels better headache now is 3 to 4/10 with improvement of the bonding sensation in the head, no photophobia. Patient was instructed to follow-up with her neurologist , stay in dark quiet room today refrain from using her cell phone, computers, and TV. Time: 15:20 Medications Administered Discontinued Medications Generic Name Dose Route Start Last Admin Trade Name Freq PRN Reason Stop Dose Admin Diphenhydramine HCl 50 mg 01/27/24 13:04 01/27/24 13:48 Diphenhydramine Hcl 50 Mg/Ml Vial IVPUSH 01/27/24 13:05 50 mg ONCE ONE Administration Sodium Chloride 1,000 mls @ 999 mls/hr 01/27/24 13:04 01/27/24 13:52 Ns IV 01/27/24 14:04 999 mls/hr .Q1H1M ONE Administration Methylprednisolone Sodium Succinate 125 mg 01/27/24 13:04 01/27/24 13:48 Methylprednisolone Sod Succ 125 Mg/2 Ml Vial IVPUSH 01/27/24 13:05 125 mg ONCE ONE Administration Metoclopramide HCl 10 mg 01/27/24 13:04 01/27/24 13:48 Metoclopramide Hcl 10 Mg/2 Ml Vial IVPUSH 01/27/24 13:05 10 mg ONCE ONE Administration Medical Decision Making Differential Diagnosis Differential Diagnoses: The differential diagnosis associated with the presentation includes ( Migraine headache, tension headache, intracranial bleed, meningitis, viral infection.) Admission/Observation Consideration of admission/observation: Escalation of care including admission/observation considered Discharge Plan Discharge Clinical Impression: Migraine Patient Disposition: Home, Self-Care Instructions: Migraine Headache (ED) Prescriptions: No Action Xolair 150 mg recon soln 300 mg subcut Q2W 28 Days Qty: 1 12RF Rx Instructions: requires multiple injection sites; do not exceed 150 mg per injection site gabapentin 100 mg capsule 100 mg PO BID montelukast 10 mg tablet 10 mg PO QPM baclofen 10 mg tablet 10 mg PO DAILY PRN amitriptyline 10 mg tablet 10 mg PO BEDTIME frvopkfjvd-mnxhfkhnvwuzs-zyvn 50-325-40 mg tablet 1 - 2 tab PO Q4H PRN nabumetone 750 mg tablet 750 mg PO BID cyclobenzaprine 5 mg tablet 5 mg PO TID albuterol sulfate 90 mcg/actuation HFA aerosol inhaler inhalation lidocaine 5 % adhesive patch,medicated 1 patch topical DAILY sumatriptan succinate 100 mg tablet PO magnesium oxide 400 mg (241.3 mg magnesium) tablet 400 mg PO DAILY fluticasone propion-salmeterol [Advair HFA] 230-21 mcg/actuation HFA aerosol inhaler 2 puff inhalation ondansetron HCl 4 mg tablet 4 mg PO Q12H PRN (Reason: nausea/vomiting) albuterol sulfate 2.5 mg /3 mL (0.083 %) solution for nebulization inhalation Incruse Ellipta 62.5 mcg/actuation blister with device 1 inh inhalation DAILY 30 Days Qty: 1 6RF azithromycin 250 mg tablet See Rx Instructions PO .COMPLEX Qty: 6 0RF Rx Instructions: For 250 mg dose pack: take 500 mg today (day 1), then 250 mg for 4 days (days 2-5) PO Referrals: Chanel Cohen MD [Primary Care Provider] - Stand Alone Forms: Work/School Release Print Language: Belarusian
[2024-01-27] MEDS: methylPREDNISolone Sod Succ 125 MG/2 ML VIAL IVPUSH (13:48)
[2024-01-27] MEDS: Metoclopramide HCl 10 MG/2 ML VIAL IVPUSH (13:48)
[2024-01-27] MEDS: diphenhydrAMINE HCL 50 MG/ML VIAL IVPUSH (13:48)
[2024-01-27 13:51] VITALS: BP 112/69; PULSE 88; RESP 19; TEMP 36.8
[2024-01-27] MEDS: 0.9 % Sodium Chloride 1,000 ML 999 ML IV (13:52)
[2024-01-27 15:42] VITALS: BP 108/63; PULSE 90; RESP 16; TEMP 36.7; O2SAT 98
== END 2024-01-27 15:46 | disposition home or self-care (01) ==
PROVIDERS: Emergency Provider Emergency Medicine; PCP Internal Medicine
DX: G43.909 Migraine, unspecified, not intractable, without status migrainosus (principal); Z79.899 Other long term (current) drug therapy
CPT/HCPCS: 96361; 96374; 96375; 99284; J1200; J2765; J2919

== ENCOUNTER 2024-05-19 09:05 | Outpatient (REF) | payer MEDICAID, SELFPAY ==
[2024-05-19 12:52] LABS: TSH reflex Free T4 1.44 uIU/mL (0.32-4.0)
== END 2024-05-19 09:06 | disposition home or self-care (01) ==
LOC: HO.HHCL 09:05
PROVIDERS: Visit Provider Internal Medicine
DX: E66.01 Morbid (severe) obesity due to excess calories (principal); Z68.35 Body mass index [BMI] 35.0-35.9, adult
CPT/HCPCS: 36415; 84443

== ENCOUNTER 2024-06-14 18:02 | Outpatient (REF) | payer MEDICAID, SELFPAY ==
[2024-06-16 17:28] LABS: HPV mRNA E6/E7 Not Detected (Not Detected)
== END 2024-06-14 18:03 | disposition home or self-care (01) ==
LOC: HO.LNP 18:02
PROVIDERS: Visit Provider Advanced Practice Midwife
DX: Z01.419 Encounter for gynecological examination (general) (routine) without abnormal findings (principal)
CPT/HCPCS: 87624; 88175

== ENCOUNTER 2024-08-12 10:33 | Outpatient (REF) | payer MEDICAID, SELFPAY ==
[2024-08-12 11:36] LABS: C Reactive Protein 1.32 mg/dL (< or = 0.50)
[2024-08-12 12:02] LABS: Erythrocyte Sedimentation Rate 34 MM/HR (0-20)
[2024-08-16 21:24] LABS: Cyclic Citrullinated Peptide <16 UNITS
[2024-08-17 13:38] LABS: Anti Nuclear Antibody Pattern Nuclear, Homogeneous; Anti Nuclear Antibody Screen POSITIVE (NEGATIVE)
== END 2024-08-12 10:34 | disposition home or self-care (01) ==
LOC: HO.HHCL 10:33
PROVIDERS: Visit Provider Internal Medicine
DX: R53.82 Chronic fatigue, unspecified (principal)
CPT/HCPCS: 36415; 85652; 86038; 86039; 86140; 86200

== ENCOUNTER 2024-08-30 10:39 | Outpatient (AMB) | payer MEDICAID, SELFPAY ==
[2024-08-30 10:56] VITALS: BP 100/60; PULSE 82; O2SAT 98; BMI 28.1
--- NOTE | 2024-08-30 10:56 | MHC.OFFVIS ---
Vital Signs 08/30/24 10:56 Height 5 ft 8 in Weight 185 lb BMI 28.1 BP 100/60 Blood Pressure Location Lt brachial Position Sitting Pulse 82 Pulse Source Doppler Pulse Oximetry (%) 98 Oxygen Delivery Method Room Air Intake Visit Reasons: asthma Allergies seafood Allergy (Intermediate, Verified 01/27/24 09:13) Shortness of Breath doxycycline Adverse Reaction (Intermediate, Verified 01/27/24 09:13) Dizziness, warm sensation, nausea HPI HPI asthma: Details: 33-year-old lady, nonsmoker, followed for underlying environmental allergies and asthma. Patient continues on Xolair, Advair, Incruse, albuterol MDI with good control of her underlying symptoms. She denies recent exacerbation. She does complain of a local reaction from Xolair injection it consists of itching and mild redness it goes away in 2-3 days after the injection. [facility] Social History Patient Tobacco Use Status: Never used Tobacco Tobacco use type: Cigarette Female Reproductive History Menstrual Age of Menarche: 12 Review of Systems Const Denies daytime sleepiness, Denies excessive sweating, Denies fatigue, Denies fever(s), Denies lethargy, Denies malaise, Denies night sweats, Denies snoring and Denies weight loss Eyes Denies blurry vision and Denies itchy eyes ENT Denies nasal congestion, Denies post nasal drip, Denies sinus pain, Denies sinus pressure and Denies other ( Thrush) Card Denies chest pain, Denies pedal edema, Denies dyspnea, Denies orthopnea and Denies paroxysmal nocturnal dyspnea Resp Denies cough, Denies hemoptysis, Denies excessive phlegm production, Denies dyspnea, Denies snoring and Denies wheezing GI Denies abdominal pain and Denies heartburn Musc Denies myalgias, Denies arthralgias and Denies joint swelling Skin/Breast Denies rash Neuro Denies memory loss and Denies seizure-like activity Psych Denies abnormal sleep pattern, Denies anxiety and Denies memory loss Endo Denies excessive sweating, Denies fatigue and Denies heat intolerance Logan/Lymph Denies easy bruising Aller/Immun Denies itchy eyes, Denies seasonal rhinorrhea and Denies wheezing Physical Exam Vital Signs: Last Vital Signs Pulse 82 08/30/24 10:56 BP 100/60 08/30/24 10:56 Pulse Ox 98 08/30/24 10:56 Oxygen Delivery Method Room Air 08/30/24 10:56 BMI result Body Mass Index 28.1 Const General: no acute distress and alert Nutritional Appearance: not obese Orientation/consciousness: Other orientation findings ( oriented) HEENT Head: Yes atraumatic Eyes General: appearance normal, both eyes and all related structures Sclerae: sclerae normal EOM: EOMs intact bilaterally Neck Neck: Yes supple Lymphatic: no lymphadenopathy noted Resp Effort & Inspection: normal respiratory effort and no use of accessory muscles Auscultation: clear to auscultation bilaterally Cardio Rate: regular rate Rhythm: regular rhythm Heart sounds: no gallops, no murmurs and no rubs Skin General skin exam: other ( warm) Extrem General: No clubbing, No cyanosis and No edema Assessment & Plan Assessment & Plan (1) Severe persistent asthma: Code(s): J45.50 - Severe persistent asthma, uncomplicated Category: Medical Plan: Well controlled on current regimen of Xolair, Advair, Incruse, and albuterol MDI/nebs. Continue current regimen. (2) Environmental allergies: Code(s): Z91.09 - Other allergy status, other than to drugs and biological substances Category: Medical Plan: Well controlled on Xolair. Continue current regimen. Medications: Changed From albuterol sulfate 90 mcg/actuation inhalation To albuterol sulfate 90 mcg/actuation 2 puffs inhalation Q4-6H PRN 1 ea 6RF shortness of breath or wheezing From fluticasone propion-salmeterol 230-21 mcg/actuation (Advair HFA) 2 puffs inhalation To fluticasone propion-salmeterol 230-21 mcg/actuation (Advair HFA) 2 puffs inhalation BID 12 grams 6RF Refilled umeclidinium 62.5 mcg/actuation (Incruse Ellipta) 1 inh inhalation DAILY 1 ea 6RF 30 days G47.33 - Obstructive sleep apnea (adult) (pediatric) Coding Level of Care Code Est Pt Level 4 (17964) Diagnoses Severe persistent asthma J45.50 Environmental allergies Z91.09
== END 2024-08-30 11:13 | disposition home or self-care (01) ==
PROVIDERS: PCP Internal Medicine; Visit Provider Internal Medicine Pulmonary Disease
DX: J45.50 Severe persistent asthma, uncomplicated (principal); Z91.09 Other allergy status, other than to drugs and biological substances
CPT/HCPCS: 99214

== ENCOUNTER → 2024-08-30 10:39 | Outpatient (BNVA) | payer MEDICAID, SELFPAY | PROVIDERS: PCP Internal Medicine; Visit Provider Internal Medicine Pulmonary Disease | DX: J45.50 Severe persistent asthma, uncomplicated (principal); G47.33 Obstructive sleep apnea (adult) (pediatric); Z91.09 Other allergy status, other than to drugs and biological substances | CPT/HCPCS: 99212 ==

== ENCOUNTER 2024-09-23 09:15 | Outpatient (RCR) | payer MEDICAID, SELFPAY ==
[2024-01-15 10:31] VITALS: BP 105/60; PULSE 83; RESP 16; TEMP 36.8; O2SAT 97
[2024-01-15] MEDS: Omalizumab 150 MG/ML SYRINGE 300 MG SUBCUT (10:58)
[2024-01-29 08:15] VITALS: BP 111/76; PULSE 90; RESP 20; TEMP 36.9; O2SAT 97
[2024-01-29] MEDS: Omalizumab 150 MG/ML SYRINGE 300 MG SUBCUT (08:16)
[2024-02-12 08:40] VITALS: BP 113/70; PULSE 100; RESP 16; TEMP 36.5; O2SAT 99
[2024-02-12] MEDS: Omalizumab 150 MG/ML SYRINGE 300 MG SUBCUT (08:45)
[2024-02-26 08:38] VITALS: BP 106/73; PULSE 92; RESP 16; TEMP 36.6; O2SAT 95
[2024-02-26] MEDS: Omalizumab 150 MG/ML SYRINGE 300 MG SUBCUT (08:40)
[2024-03-11 08:32] VITALS: BP 109/71; PULSE 89; RESP 16; TEMP 37.2; O2SAT 98
[2024-03-11] MEDS: Omalizumab 150 MG/ML SYRINGE 300 MG SUBCUT (08:35)
[2024-04-06 13:39] VITALS: BP 112/67; PULSE 87; RESP 16; TEMP 36.6; O2SAT 98
[2024-04-06] MEDS: Omalizumab 150 MG/ML SYRINGE 300 MG SUBCUT (13:42)
[2024-04-21 09:06] VITALS: BP 132/80; PULSE 81; RESP 14; TEMP 36.8; O2SAT 97
[2024-04-21] MEDS: Omalizumab 150 MG/ML SYRINGE 300 MG SUBCUT (09:12)
[2024-05-05 09:10] VITALS: BP 104/63; PULSE 92; RESP 16; TEMP 36.4; O2SAT 98
[2024-05-05] MEDS: Omalizumab 150 MG/ML SYRINGE 300 MG SUBCUT (09:15)
[2024-05-19 08:38] VITALS: BP 117/65; PULSE 81; RESP 18; TEMP 36.6; O2SAT 97
[2024-05-19] MEDS: Omalizumab 150 MG/ML SYRINGE 300 MG SUBCUT (08:40)
[2024-06-02 08:56] VITALS: BMI 35.2
[2024-06-02 08:58] VITALS: BP 114/68; PULSE 75; RESP 16; TEMP 36.9; O2SAT 99
[2024-06-02] MEDS: Omalizumab 150 MG/ML SYRINGE 300 MG SUBCUT (09:04)
[2024-06-20 09:06] VITALS: BP 121/77; PULSE 79; RESP 16; TEMP 36.6; O2SAT 99
[2024-06-20] MEDS: Omalizumab 150 MG/ML SYRINGE 300 MG SUBCUT (09:07)
[2024-07-04 08:58] VITALS: BP 111/72; PULSE 79; RESP 14; TEMP 36.6; O2SAT 100
[2024-07-04] MEDS: Omalizumab 150 MG/ML SYRINGE 300 MG SUBCUT (09:02)
[2024-07-19 09:00] VITALS: BP 118/66; PULSE 81; RESP 14; TEMP 36.1; O2SAT 100
[2024-07-19] MEDS: Omalizumab 150 MG/ML SYRINGE 300 MG SUBCUT (09:01)
[2024-08-04 09:03] VITALS: BP 123/64; PULSE 85; RESP 16; TEMP 36.6; O2SAT 97
[2024-08-04] MEDS: Omalizumab 150 MG/ML SYRINGE 300 MG SUBCUT (09:04)
[2024-08-18 08:59] VITALS: BP 121/60; PULSE 87; RESP 16; TEMP 36; O2SAT 98
[2024-08-18] MEDS: Omalizumab 150 MG/ML SYRINGE 300 MG SUBCUT (09:01)
[2024-09-05 09:12] VITALS: BP 124/75; PULSE 80; RESP 16; TEMP 36.1; O2SAT 96
[2024-09-05] MEDS: Omalizumab 150 MG/ML SYRINGE 300 MG SUBCUT (09:15)
[2024-09-23 09:08] VITALS: BP 108/67; PULSE 93; RESP 16; TEMP 36.6; O2SAT 99
[2024-09-23] MEDS: Omalizumab 150 MG/ML SYRINGE 300 MG SUBCUT (09:11)
== END 2024-10-11 11:00 | disposition home or self-care (01) ==
LOC: HO.INF 09:15
PROVIDERS: Visit Provider Internal Medicine Pulmonary Disease
DX: J45.50 Severe persistent asthma, uncomplicated (principal)
CPT/HCPCS: 96372; J2357

== ENCOUNTER 2024-10-06 10:08 | Outpatient (REF) | payer MEDICAID, SELFPAY ==
[2024-10-06 11:54] LABS: HCG Quantitative 1304 mIU/mL
[2024-10-07 02:21] LABS: CT PCR NOT DETECTED (Not Detect.); NG PCR NOT DETECTED (Not Detect.)
[2024-10-07 08:43] LABS: Bacterial Vaginosis PCR POSITIVE (Negative); Candida Group PCR DETECTED (Not Detect); Candida glab krusei PCR NOT DETECTED (Not Detect); Trichomonas vaginalis PCR NOT DETECTED (Not Detect)
== END 2024-10-06 10:09 | disposition home or self-care (01) ==
LOC: HO.HHCL 10:08
PROVIDERS: Visit Provider Family Medicine
DX: Z32.01 Encounter for pregnancy test, result positive (principal); N30.01 Acute cystitis with hematuria; R42 Dizziness and giddiness
CPT/HCPCS: 36415; 81515; 84702; 87086; 87491; 87591

== ENCOUNTER 2025-08-17 08:47 | Outpatient (REF) | payer MEDICAID, SELFPAY ==
[2025-08-17 11:12] LABS: MANUAL DIFF FLAG NO
[2025-08-17 11:22] LABS: Hematocrit 38.2 % (37.0-47.0); Hemoglobin 12.6 g/dl (12.0-16.0); Imm Gran Abs Auto 0.01 X10*3/uL (0.00-0.03); Imm Gran Pct Auto 0.2 % (0.0-0.4); Lymphocytes Absolute Auto 1.8 X10*3/uL (1.2-4.9); Mean Corpuscular HGB Conc 33.0 g/dl (31.0-35.0); Mean Corpuscular Hemoglobin 28.1 pg (27.0-33.0); Mean Corpuscular Volume 85.1 fL (80.0-98.0); NRBC Abs Auto 0.000 X10*3/uL (0.0-0.012); NRBC Pct Auto 0.0 /100WBC (0.0-0.2); Platelet Count 308 X10*3/uL (160-400); Red Blood Count 4.49 X10*6/uL (4.20-5.50); White Blood Count 6.4 X10*3/uL (4.8-10.8)
[2025-08-17 11:48] LABS: Alanine Aminotransferase 25 U/L (0-31); Albumin Level 4.3 g/dL (3.5-5.0); Alkaline Phosphatase 108 U/L (39-117); Anion Gap 10 (12-20); Aspartate Amino Transferase 25 U/L (5-31); Blood Urea Nitrogen 14 mg/dL (9-16); Calcium 9.2 mg/dL (8.4-10.2); Carbon Dioxide 25 mmol/L (22-29); Chloride 108 mmol/L (96-108); Estimated Glomerular Filt Rate > 60; Potassium 4.0 mmol/L (3.3-5.1); Sodium 139 mmol/L (135-145); Total Protein 7.3 g/dL (6.5-8.0)
== END 2025-08-17 08:48 | disposition home or self-care (01) ==
LOC: HO.HHCL 08:47
PROVIDERS: PCP Internal Medicine; Visit Provider Internal Medicine
DX: O99.810 Abnormal glucose complicating pregnancy (principal)
CPT/HCPCS: 36415; 80053; 83036; 85025